=== PATIENT | male | born 1970 | race African-American/Black ===

== ENCOUNTER 2017-03-20 10:52 | Emergency (ER) | payer MEDICAID ==
[~2017-03-20] VITALS: Ht 162.6 cm; Wt 64.0 kg
[2017-03-20] MEDS ORDERED: OXYCODONE HCL/ACETAMINOPHEN 5/325MG TABLET PO ONE (11:45)
[2017-03-20 11:47] VITALS: BP 153/103
== END 2017-03-20 12:39 | disposition home or self-care (01) ==
LOC: ER 11:21
DX: S90.31XA Contusion of right foot, initial encounter (principal); S50.01XA Contusion of right elbow, initial encounter; V03.90XA Pedestrian on foot injured in collision with car, pick-up truck or van, unspecified whether traffic or nontraffic accident, initial encounter; Y93.89 Activity, other specified; Y92.89 Other specified places as the place of occurrence of the external cause; E11.9 Type 2 diabetes mellitus without complications; I10 Essential (primary) hypertension; F17.210 Nicotine dependence, cigarettes, uncomplicated
CPT/HCPCS: 73080; 73630; 99284; Z7610